=== PATIENT | female | born 1985 | race African-American/Black ===

== ENCOUNTER 2018-05-06 20:46 | Emergency (ER) | payer MEDICAID ==
[~2018-05-06] VITALS: Ht 160 cm; Wt 87.5 kg
[2018-05-06 22:01] LABS: BILIRUBIN,URINE SMALL (NEG); CLARITY,URINE CLEAR; COLOR,URINE YELLOW; NITRITE,URINE NEGATIVE (NEG); PH,URINE 5.5; PROTEIN,URINE NEGATIVE (NEG-TRACE)
[2018-05-06 22:08] LABS: BACTERIA,URINE 0 /HPF (0-FEW); RBC,URINE 0 /HPF (0-2); SQUAMOUS EPITHELIAL CELL,UR MOD /LPF; WBC,URINE OCC /HPF (0-4)
[2018-05-06 22:14] LABS: ALBUMIN 3.6 g/dL (3.4-5.0); DIRECT BILIRUBIN 0.1 mg/dL (0.0-0.2); TOTAL BILIRUBIN 0.3 mg/dL (0.2-1.0); TOTAL PROTEIN 7.7 g/dL (6.4-8.2)
[2018-05-06] MEDS: ACETAMINOPHEN 500 MG TABLET PO ONE (22:46)
[2018-05-06] MEDS: AZITHROMYCIN 250 MG TABLET. PO ONE (22:46)
[2018-05-06] MEDS: metroNIDAZOLE 500 MG TABLET PO ONE (22:46)
[2018-05-06] MEDS: ONDANSETRON ODT 4 MG TAB.RAPDIS. PO ONE (22:46)
[2018-05-06] MEDS: cefTRIAXone IM 250 MG VIAL IM ONE (22:47)
--- NOTE | 2018-05-06 22:53 | RAD ---
Early OB ultrasound History: Pelvic pain. . No correlative beta hCG levels Comparison: None. Technique: Transabdominal imaging was performed for initial evaluation of the pelvis. Endovaginal imaging was performed to evaluate optimally the lower uterine segment and to increase sensitivity for detection of intrauterine . Findings: Transabdominal imaging: Uterus measures 5.3 cm in length. No intrauterine is identified. Right ovary measures 3.8 x 3.4 x 4.7 cm and demonstrates 3.9 cm corpus luteum cyst. Left ovary is not visualized. Right ovary demonstrates normal vascular flow upon Doppler interrogation and is without evidence of torsion. No adnexal masses are seen.. Endovaginal imaging: Uterus measures 10.3 cm in length. Single intrauterine is identified with gestational sac and yolk sac seen. Gestational sac appears regular. No subchorionic hemorrhage is identified. Embryo is not identified at this time. Mean sac diameter is 8.5 mm corresponding to 5 weeks 5 days. Estimated date of delivery based on this measurement is January 01, 2019. Left ovary measures 2.0 x 3.2 x 1.9 cm and is unremarkable. Left ovary demonstrates normal vascular flow upon Doppler interrogation and is without evidence of torsion. Right ovary is not seen. Impression: 1. Single intrauterine . Gestational sac and yolk sac are seen. Embryonic pole is not identified this time, which can be normal this early in . Mean sac diameter of 8.5 mm corresponds to 5 weeks 5 days. Estimated date of delivery based on this measurement is January 01, 2019. Electronically signed by: Paulo Hawkins MD (05/06/2018 10:49 PM) [facility]
--- NOTE | 2018-05-06 23:04 | PHYS DOC ---
Past Medical History Past Medical History: Other Additional Past Medical Histor: HEP C Past Surgical History: Cholecystectomy Alcohol Use: Occasionally Drug Use: None Adult General Chief Complaint Chief Complaint: VAGINAL BLEEDING HPI HPI Patient is a 32 year old female who presents with multiple complaints. The patient states that she took a test was +2 weeks ago. She states that the father of the child is no longer in the picture because he informed her that he was positive for a sexually transmitted disease. She states that she does not know which sexually transmitted disease he was infected with. She also states that she has hepatitis C and is worried about her liver enzymes. The patient has not followed up with the health department or an tanker serviceman. She denies vaginal bleeding. Review of Systems Review of Systems Constitutional: Denies fever or chills [] Respiratory: Denies cough or shortness of breath [] Cardiovascular: No additional information not addressed in HPI [] GI: See history of present illness : Denies dysuria or hematuria [] Musculoskeletal: Denies back pain or joint pain [] Integument: Denies rash or skin lesions [] Neurologic: Denies headache, focal weakness or sensory changes [] Endocrine: Denies polyuria or polydipsia [] All other systems were reviewed and found to be within normal limits, except as documented in this note. Current Medications Current Medications Current Medications Medications (Trade) Dose Ordered Sig/Linda Start Time Stop Time Status Last Admin Dose Admin Acetaminophen (Tylenol) 1,000 mg 1X ONCE 05/06/18 22:45 05/06/18 22:46 DC 05/06/18 22:46 1,000 MG Azithromycin (Zithromax) 1,000 mg 1X ONCE 05/06/18 22:45 05/06/18 22:46 DC 05/06/18 22:46 1,000 MG Ceftriaxone Sodium (Rocephin Im) 250 mg 1X ONCE 05/06/18 22:45 05/06/18 22:46 DC 05/06/18 22:47 250 MG Metronidazole (Flagyl) 2,000 mg 1X ONCE 05/06/18 22:45 05/06/18 22:46 DC 05/06/18 22:46 2,000 MG Ondansetron HCl (Zofran Odt) 4 mg 1X ONCE 05/06/18 22:45 05/06/18 22:46 DC 05/06/18 22:46 4 MG Allergies Allergies Allergies Coded Allergies Type Severity Reaction Last Updated Verified No Known Drug Allergies 05/06/18 No Physical Exam Physical Exam Constitutional: Well developed, well nourished, no acute distress, non-toxic appearance. [] Cardiovascular:Heart rate regular rhythm, no murmur [] Lungs & Thorax: Bilateral breath sounds clear to auscultation [] Abdomen: Bowel sounds normal, soft, no tenderness, no masses, no pulsatile masses. [] Skin: Warm, dry, no erythema, no rash. [] Back: No tenderness, no CVA tenderness. [] Extremities: No tenderness, no cyanosis, no clubbing, ROM intact, no edema. [] Neurologic: Alert and oriented X 3, normal motor function, normal sensory function, no focal deficits noted. [] Psychologic: Affect normal, judgement normal, mood normal. [] Current Patient Data Vital Signs Vital Signs Date Time Temp Pulse Resp B/P (MAP) Pulse Ox O2 Delivery O2 Flow Rate FiO2 05/06/18 23:09 79 18 140/70 (93) 99 05/06/18 21:12 98.5 Room Air 98.5 Lab Values Laboratory Tests Test 05/06/18 20:48 05/06/18 21:51 Urine Collection Type Unknown Urine Color Yellow Urine Clarity Clear Urine pH 5.5 Urine Specific [place] >=1.030 Urine Protein Negative mg/dL (NEG-TRACE) Urine Glucose (UA) 100 mg/dL (NEG) Urine Ketones (Stick) Trace mg/dL (NEG) Urine Blood Negative (NEG) Urine Nitrite Negative (NEG) Urine Bilirubin Small (NEG) Urine Urobilinogen Dipstick 1.0 mg/dL (0.2 mg/dL) Urine Leukocyte Esterase Negative (NEG) Urine RBC 0 /HPF (0-2) Urine WBC Occ /HPF (0-4) Urine Squamous Epithelial Cells Mod /LPF Urine Bacteria 0 /HPF (0-FEW) Urine Mucus Mod /LPF Total Bilirubin 0.3 mg/dL (0.2-1.0) Direct Bilirubin 0.1 mg/dL (0.0-0.2) Aspartate Amino Transferase (AST) 27 U/L (15-37) Alanine Aminotransferase (ALT) 50 U/L (14-59) Alkaline Phosphatase 74 U/L (46-116) Total Protein 7.7 g/dL (6.4-8.2) Albumin 3.6 g/dL (3.4-5.0) Microbiology 05/06/18 Wet Prep - Final, Complete EKG EKG [] Radiology/Procedures Radiology/Procedures []PATIENT: DEON AGUILARACCOUNT: [id number]#: [id number] : 1985 LOCATION: ER AGE: 32 SEX: F EXAM STATUS: REG ER ORD. PHYSICIAN: ADIA SMITH APRN REASON: pelvic pain PROCEDURE: OB < 14 WKS Early OB ultrasound History: Pelvic pain. . No correlative beta hCG levels Comparison: None. Technique: Transabdominal imaging was performed for initial evaluation of the pelvis. Endovaginal imaging was performed to evaluate optimally the lower uterine segment and to increase sensitivity for detection of intrauterine . Findings: Transabdominal imaging: Uterus measures 5.3 cm in length. No intrauterine is identified. Right ovary measures 3.8 x 3.4 x 4.7 cm and demonstrates 3.9 cm corpus luteum cyst. Left ovary is not visualized. Right ovary demonstrates normal vascular flow upon Doppler interrogation and is without evidence of torsion. No adnexal masses are seen.. Endovaginal imaging: Uterus measures 10.3 cm in length. Single intrauterine is identified with gestational sac and yolk sac seen. Gestational sac appears regular. No subchorionic hemorrhage is identified. Embryo is not identified at this time. Mean sac diameter is 8.5 mm corresponding to 5 weeks 5 days. Estimated date of delivery based on this measurement is January 01, 2019. Left ovary measures 2.0 x 3.2 x 1.9 cm and is unremarkable. Left ovary demonstrates normal vascular flow upon Doppler interrogation and is without evidence of torsion. Right ovary is not seen. Impression: 1. Single intrauterine . Gestational sac and yolk sac are seen. Embryonic pole is not identified this time, which can be normal this early in . Mean sac diameter of 8.5 mm corresponds to 5 weeks 5 days. Estimated date of delivery based on this measurement is January 01, 2019. Electronically signed by: Paulo Randall MD (05/06/2018 10:49 PM) [facility] DICTATED and SIGNED BY: PAULO RANDALL MD DATE: 05/06/18 6832 Impressions: Pelvic Exam: Mold Unloader present Abdomen: Nontender External Genitalia: Normal Skin Speculum: Normal vaginal mucosa, normal cervical discharge Bimanual: No adnexal masses or tenderness, No CMT Course & Med Decision Making Course & Med Decision Making Pertinent Labs and Imaging studies reviewed. (See chart for details) []The patient was given Rocephin, Zithromax and Flagyl in the emergency department. She was also given a dose of Tylenol for pain as well as Zofran prior to her medications. Dragon Disclaimer Dragon Disclaimer This electronic medical record was generated, in whole or in part, using a voice recognition dictation system. Departure Departure Impression: Primary Impression: Bacterial vaginosis Additional Impressions: Exposure to sexually transmitted disease (STD) Disposition: 01 HOME, SELF-CARE Condition: STABLE Referrals: NO PCP (PCP) ADENIKE JASMINE Jr, MD Patient Instructions: ABCs of , Bacterial Vaginosis, Sexually Transmitted Disease Additional Instructions: You were treated in the emergency department. Follow up with an tanker serviceman at an earliest available appointment for further management of your . Abstain for sexual activity for 2 weeks to allow time for the antibiotics to work. Problem Qualifiers ADIA SMITH APRN May 06, 2018 23:04
[2018-05-06 23:09] VITALS: BP 140/70
== END 2018-05-06 23:09 | disposition home or self-care (01) ==
LOC: ER 20:46
DX: O23.591 Infection of other part of genital tract in pregnancy, first trimester (principal); N76.0 Acute vaginitis; B96.89 Other specified bacterial agents as the cause of diseases classified elsewhere; Z20.2 Contact with and (suspected) exposure to infections with a predominantly sexual mode of transmission; Z3A.01 Less than 8 weeks gestation of pregnancy; Z90.49 Acquired absence of other specified parts of digestive tract
CPT/HCPCS: 76801; 80076; 81001; 81025; 96372; 99285; J0696; Q0111; Q0144; Q0162

== ENCOUNTER 2018-10-04 23:53 | Observation (INO) | payer SELFPAY ==
[~2018-10-04 23:53] MED LIST: IV RINGERS,LACTATED 1000ML 1,000 ML IV SCH
[2018-10-05] MEDS ORDERED: ACETAMINOPHEN 500 MG TABLET PO PRN
[2018-10-05 00:25] LABS: BILIRUBIN,URINE NEGATIVE (NEG); CLARITY,URINE CLEAR; COLOR,URINE YELLOW; NITRITE,URINE NEGATIVE (NEG); PROTEIN,URINE NEGATIVE (NEG-TRACE)
[2018-10-05 00:31] LABS: BACTERIA,URINE 0 /HPF (0-FEW); RBC,URINE 0 /HPF (0-2); SQUAMOUS EPITHELIAL CELL,UR MOD /LPF; WBC,URINE RARE /HPF (0-4)
[2018-10-05 00:40] LABS: BARBITURATES NEG (NEG); BENZODIAZEPINES NEG (NEG); CANNABINOIDS NEG (NEG); COCAINE NEG (NEG); METHADONE NEG (NEG); OPIATES NEG (NEG); PHENCYCLIDINE NEG (NEG)
[2018-10-05 00:43] LABS: AMPHETAMINE/METHAMPHETAMINE NEG (NEG)
[2018-12-28] MEDS ORDERED: NAPR-514 PO (15:23)
[2018-12-28] MEDS ORDERED: OXYC1TAB15 PO (15:23)
[2018-12-28] MEDS ORDERED: FERR325T14 PO (15:23)
== END 2018-10-05 01:17 | disposition home or self-care (01) ==
LOC: 3 SO LND 23:53
PROVIDERS: ADMIT Obstetrics & Gynecology; ATTEND Obstetrics & Gynecology
DX: O62.9 Abnormality of forces of labor, unspecified (principal); O22.42 Hemorrhoids in pregnancy, second trimester; O98.212 Gonorrhea complicating pregnancy, second trimester; O26.893 Other specified pregnancy related conditions, third trimester; M54.9 Dorsalgia, unspecified; R51 Headache; R19.7 Diarrhea, unspecified; Z3A.27 27 weeks gestation of pregnancy
CPT/HCPCS: 80307; 81001; 82962; G0379

== ENCOUNTER 2018-12-21 19:42 | Observation (INO) | payer MEDICAID ==
[~2018-12-21] VITALS: Ht 160 cm; Wt 90.3 kg
[2018-12-21] MEDS ORDERED: ACETAMINOPHEN 325 MG TABLET. PO PRN (19:45)
[2018-12-21] MEDS ORDERED: IV RINGERS,LACTATED 1000ML 1,000 ML IV PRN (19:45)
[2018-12-21 20:10] LABS: BILIRUBIN,URINE NEGATIVE (NEG); CLARITY,URINE CLOUDY; COLOR,URINE YELLOW; NITRITE,URINE NEGATIVE (NEG); PH,URINE 5.5; PROTEIN,URINE 30 mg/dL (NEG-TRACE)
[2018-12-21 20:16] LABS: AMPHETAMINE/METHAMPHETAMINE NEG (NEG); BARBITURATES NEG (NEG); BENZODIAZEPINES NEG (NEG); CANNABINOIDS NEG (NEG); COCAINE NEG (NEG); METHADONE NEG (NEG); OPIATES NEG (NEG); PHENCYCLIDINE NEG (NEG)
[2018-12-21 20:35] LABS: BACTERIA,URINE MODERATE /HPF (0-FEW); SQUAMOUS EPITHELIAL CELL,UR MANY /LPF; YEAST,URINE PRESENT /HPF
[2018-12-21] MEDS ORDERED: HYDROCORTISONE 2.5% RECTAL CREAM 30GM TUBE. RC PRN (21:00)
[2018-12-21] MEDS ORDERED: BENZOCAINE 20% TOPICAL AEROSOL SPRAY 57GM CAN. TP PRN (21:00)
[2018-12-21] MEDS ORDERED: hydrOXYzine 25 MG TABLET PO PRN (21:00)
[2018-12-21] MEDS ORDERED: ACETAMINOPHEN 500 MG TABLET PO PRN (21:00)
[2018-12-21] MEDS ORDERED: ZOLPIDEM 5 MG TABLET. PO PRN (21:00)
[2018-12-21 21:09] VITALS: BP 124/67
[2018-12-21 21:24] LABS: CREATININE,RANDOM URINE 150.8 mg/dL (Not Establ.)
[2018-12-21] MEDS: IV RINGERS,LACTATED 1000ML 1,000 ML IV SCH ×2 (21:24→23:00)
[2018-12-21 21:31] LABS: BASO % 0 % (0-3); EOS # 0.1 x10^3/uL (0.0-0.7); EOS % 1 % (0-3); HEMATOCRIT 35.1 % (36.0-47.0); HEMOGLOBIN 12.1 g/dL (12.0-15.5); LYMPH # 3.2 x10^3/uL (1.0-4.8); LYMPH % 38 % (24-48); MEAN CORPUSCULAR HEMOGLOBIN 31 pg (25-35); MEAN CORPUSCULAR HGB CONC 34 g/dL (31-37); MEAN CORPUSCULAR VOLUME 90 fL (79-100); MONO # 0.5 x10^3/uL (0.0-1.1); MONO % 7 % (0-9); NEUT # 4.6 x10^3uL (1.8-7.7); NEUT % 55 % (31-73); PLATELET COUNT 260 x10^3/uL (140-400); RED BLOOD COUNT 3.91 x10^6/uL (3.50-5.40); RED CELL DISTRIBUTION WIDTH 13.7 % (11.5-14.5); WHITE BLOOD COUNT 8.4 x10^3/uL (4.0-11.0)
[2018-12-21 21:41] LABS: CALCIUM 9.4 mg/dL (8.5-10.1); CREATININE 0.6 mg/dL (0.6-1.0); GFR 141.1; POTASSIUM 3.8 mmol/L (3.5-5.1)
[2018-12-21 21:47] LABS: ALBUMIN 2.7 g/dL (3.4-5.0); ALBUMIN/GLOBULIN RATIO 0.7 (1.0-1.7); TOTAL BILIRUBIN 0.4 mg/dL (0.2-1.0); TOTAL PROTEIN 6.7 g/dL (6.4-8.2)
[2018-12-21] MEDS ORDERED: FLUCONAZOLE 100 MG TABLET. PO ONE (22:30)
[2018-12-21] MEDS ORDERED: MICONAZOLE NITRATE 2% TOPICAL CREAM 28GM TUBE. TP SCH (22:30)
[2018-12-22] MEDS ORDERED: PRENATAL MULTIVITAMIN TABLET. PO SCH (09:00)
[2018-12-22] MEDS ORDERED: MICONAZOLE NITRATE 2% TOPICAL CREAM 28GM TUBE. TP SCH (09:00)
[2018-12-23 02:13] LABS: HEMOGLOBIN A1C 7.7 % (4.8-5.6)
[2018-12-28] MEDS ORDERED: OXYC1TAB15 PO (15:23)
[2018-12-28] MEDS ORDERED: FERR325T14 PO (15:23)
[2018-12-28] MEDS ORDERED: NAPR-514 PO (15:23)
== END 2018-12-21 23:55 | disposition home or self-care (01) ==
LOC: 3 SO LND 19:42
PROVIDERS: ADMIT Specialist; ATTEND Specialist
DX: O62.9 Abnormality of forces of labor, unspecified (principal); O22.43 Hemorrhoids in pregnancy, third trimester; Z3A.38 38 weeks gestation of pregnancy
CPT/HCPCS: 36415; 80053; 80307; 81001; 82570; 82962; 83036; 84156; 84443; 85025; 87086; 87653; G0378; G0379; J7120

== ENCOUNTER 2019-08-29 21:50 | Emergency (ER) | payer MEDICAID ==
[~2019-08-29] VITALS: Ht 160 cm; Wt 84.0 kg
[~2019-08-29 21:50] MED LIST changes: +FERR325T14 PO; -IV RINGERS,LACTATED 1000ML 1,000 ML IV SCH; +NAPR-514 PO; +OXYC1TAB15 PO
[2019-08-30 02:30] VITALS: BP 176/124
[2019-08-30] MEDS ORDERED: cloNIDine HCL 0.1 MG TABLET PO ONE (03:00)
[2019-08-30 03:15] LABS: BILIRUBIN,URINE NEGATIVE (NEG); CLARITY,URINE CLEAR; COLOR,URINE YELLOW; NITRITE,URINE NEGATIVE (NEG); PH,URINE 5.5; PROTEIN,URINE 100 mg/dL (NEG-TRACE)
[2019-08-30 03:19] LABS: SQUAMOUS EPITHELIAL CELL,UR MOD /LPF
[2019-08-30 03:21] LABS: BACTERIA,URINE FEW /HPF (0-FEW); RBC,URINE 0 /HPF (0-2); YEAST,URINE PRESENT /HPF
--- NOTE | 2019-08-30 03:29 | PHYS DOC ---
Past Medical History Past Medical History: Other Additional Past Medical Histor: HEP C Past Surgical History: Cholecystectomy Smoking Status: Current Every Day Smoker Alcohol Use: Occasionally Drug Use: None Adult General Chief Complaint Chief Complaint: HEMORRHOIDS HPI HPI Patient is a 33 year old G6, P6 female presents with urinary frequency urgency dysuria, vaginal itching and discharge the past 2 weeks. Patient and treating herself with a Monistat cream for possible yeast infection without improvement. Symptoms began after recent intercourse with Renzo. No abdominal pain, pelvic pain. No fever chills or sweats. No other acute symptoms or complaints. [] Review of Systems Review of Systems ROS as per HPI All other systems were reviewed and found to be within normal limits, except as documented in this note. Current Medications Current Medications Current Medications Medications (Trade) Dose Ordered Sig/Linda Start Time Stop Time Status Last Admin Dose Admin Clonidine HCl (Catapres) 0.3 mg 1X ONCE 08/30/19 03:00 08/30/19 03:26 DC Allergies Allergies Allergies Coded Allergies Type Severity Reaction Last Updated Verified No Known Drug Allergies 05/06/18 No Physical Exam Physical Exam Constitutional: Well developed, well nourished, no acute distress, non-toxic appearance. [] HENT: Normocephalic, atraumatic, bilateral external ears normal, oropharynx moist, no oral exudates, nose normal. [] Eyes: PERRLA, EOMI, conjunctiva normal, no discharge. [] Abdomen: Bowel sounds normal, soft, no tenderness. [] : External genitalia, normal, and, no lesions, white frothy discharge, cervix closed. Tenderness on exam.. [] Back: No tenderness. [] Neurologic: Alert and oriented X 3, normal motor function, normal sensory function, no focal deficits noted. [] Psychologic: Affect normal, judgement normal, mood normal. [] Current Patient Data Lab Values Laboratory Tests Test 08/30/19 03:07 08/30/19 03:09 Urine Collection Type Unknown Urine Color Yellow Urine Clarity Clear Urine pH 5.5 Urine Specific [place] >=1.030 Urine Protein 100 mg/dL (NEG-TRACE) Urine Glucose (UA) >=1000 mg/dL (NEG) Urine Ketones (Stick) Negative mg/dL (NEG) Urine Blood Negative (NEG) Urine Nitrite Negative (NEG) Urine Bilirubin Negative (NEG) Urine Urobilinogen Dipstick 1.0 mg/dL (0.2 mg/dL) Urine Leukocyte Esterase Negative (NEG) Urine RBC 0 /HPF (0-2) Urine WBC 5-10 /HPF (0-4) Urine Squamous Epithelial Cells Mod /LPF Urine Bacteria Few /HPF (0-FEW) Urine Yeast Present /HPF POC Urine HCG, Qualitative Hcg negative (Negative) Microbiology 08/30/19 Wet Prep - Final, Complete EKG EKG [] Radiology/Procedures Radiology/Procedures [] Course & Med Decision Making Course & Med Decision Making Pertinent Labs and Imaging studies reviewed. (See chart for details) Exam consistent with yeast vaginitis] Dragon Disclaimer Dragon Disclaimer This electronic medical record was generated, in whole or in part, using a voice recognition dictation system. Departure Departure Impression: Primary Impression: Yeast vaginitis Disposition: HOME, SELF-CARE Condition: STABLE Referrals: UNKNOWN PCP NAME (PCP) Scripts Fluconazole (DIFLUCAN) 150 Mg Tablet 1 TAB PO Q3DAYS, #2 TAB 1 Refill Prov: EMMIE KATZ DO 08/30/19 EMMIE KATZ DO Aug 30, 2019 03:29
[2019-08-30] MEDS ORDERED: FLUC150T PO (03:57)
[2019-08-31 19:09] LABS: GC PROBE Positive (Negative)
== END 2019-08-30 04:12 | disposition home or self-care (01) ==
LOC: ER 21:50
DX: B37.3 Candidiasis of vulva and vagina (principal); F17.200 Nicotine dependence, unspecified, uncomplicated; Z90.49 Acquired absence of other specified parts of digestive tract
CPT/HCPCS: 81001; 81025; 87086; 87491; 87591; 99283; Q0111

== ENCOUNTER 2019-09-02 14:52 | Emergency (ER) | payer MEDICAID ==
[~2019-09-02] VITALS: Ht 160 cm; Wt 84.0 kg
[~2019-09-02 14:52] MED LIST changes: +FLUC150T PO
[2019-09-02] MEDS ORDERED: AZITHROMYCIN 250 MG TABLET. PO ONE (15:00)
[2019-09-02] MEDS ORDERED: ONDANSETRON ODT 4 MG TAB.RAPDIS. PO ONE (15:00)
[2019-09-02] MEDS ORDERED: cefTRIAXone IM 250 MG VIAL IM ONE (15:00)
--- NOTE | 2019-09-02 15:03 | PHYS DOC ---
Past Medical History Past Medical History: Other Additional Past Medical Histor: HEP C Past Surgical History: Cholecystectomy Smoking Status: Current Every Day Smoker Alcohol Use: Occasionally Drug Use: None Adult General Chief Complaint Chief Complaint: OTHER COMPLAINTS HPI HPI Patient is a 33 year old female who presents with came back positive for Chlamydia and gonorrhea on August 30, 2019. Patient was not treated with antibiotics prophylactically. Patient is here today to be treated Review of Systems Review of Systems : + gonorrhea and chlamydia. Denies dysuria or hematuria [] All other systems were reviewed and found to be within normal limits, except as documented in this note. Allergies Allergies Allergies Coded Allergies Type Severity Reaction Last Updated Verified No Known Drug Allergies 05/06/18 No Physical Exam Physical Exam Constitutional: Well developed, well nourished, no acute distress, non-toxic appearance. [] HENT: Normocephalic, atraumatic, bilateral external ears normal, oropharynx moist, no oral exudates, nose normal. [] Eyes: PERRLA, EOMI, conjunctiva normal, no discharge. [] Neck: Normal range of motion, no tenderness, supple, no stridor. [] Cardiovascular:Heart rate regular rhythm, no murmur [] Lungs & Thorax: Bilateral breath sounds clear to auscultation [] Abdomen: Bowel sounds normal, soft, no tenderness, no masses, no pulsatile masses. [] Skin: Warm, dry, no erythema, no rash. [] Back: No tenderness, no CVA tenderness. [] Extremities: No tenderness, no cyanosis, no clubbing, ROM intact, no edema. [] Neurologic: Alert and oriented X 3, normal motor function, normal sensory function, no focal deficits noted. [] Psychologic: Affect normal, judgement normal, mood normal. Normal Physical exam[] EKG EKG [] Radiology/Procedures Radiology/Procedures [] Course & Med Decision Making Course & Med Decision Making Pertinent Labs and Imaging studies reviewed. (See chart for details) Patient denies any worsening symptoms. Patient denies abdominal pain, nausea, vomiting, fever, back pain, chest pain, shortness of air, dysuria, headache, dizziness, visual changes, weakness, numbness or tingling. Abdomen soft and nontender. Alert and oriented. Ambulatory with a steady gait. Skin pink warm and dry. Patient is treated today in the ED with Rocephin and azithromycin. Patient was called by Redd DECKER. [] Lopez Disclaimer Dragon Disclaimer This electronic medical record was generated, in whole or in part, using a voice recognition dictation system. Departure Departure Impression: Primary Impression: Sexually transmitted disease Disposition: HOME, SELF-CARE Condition: STABLE Referrals: UNKNOWN PCP NAME (PCP) Patient Instructions: Sexually Transmitted Disease Additional Instructions: Have all partners treated for sexually transmitted diseases. WICHO ADKINS APRN Sep 02, 2019 15:03
[2019-09-02 15:10] VITALS: BP 144/92
== END 2019-09-02 15:30 | disposition home or self-care (01) ==
LOC: ER 14:52
DX: A64 Unspecified sexually transmitted disease (principal); Z90.49 Acquired absence of other specified parts of digestive tract; F17.200 Nicotine dependence, unspecified, uncomplicated
CPT/HCPCS: 96372; 99283; J0696; Q0144; Q0162

== ENCOUNTER 2020-09-15 19:12 | Emergency (ER) | payer MEDICAID ==
[~2020-09-15] VITALS: Ht 160 cm; Wt 86.4 kg
[2020-09-15] MEDS ORDERED: ALPRAZolam 0.5 MG TABLET PO ONE (20:15)
--- NOTE | 2020-09-15 22:11 | RAD ---
Exam: Abdomen 2 views INDICATION: Constipated TECHNIQUE: Upright and supine views of the abdomen Comparisons: None FINDINGS: Air and stool noted throughout the colon to level the rectum in a nonobstructive bowel gas pattern. L arge amount stool in the colon. No suspicious masses or calcifications. No free air No suspicious osseous lesions or acute fractures IMPRESSION: Large amount stool noted in the colon. Correlate for constipation. Electronically signed by: Radha Martino MD (09/15/2020 10:08 PM) [facility]
[2020-09-15 22:51] VITALS: BP 172/118
--- NOTE | 2020-09-15 23:23 | ED.ADGEN ---
Past Medical History Past Medical History: Other Additional Past Medical Histor: HEP C Past Surgical History: Cholecystectomy, Tubal ligation Smoking Status: Current Every Day Smoker Alcohol Use: Occasionally Drug Use: None General Adult EDM: Chief Complaint: CONTISPATION HPI: HPI: Patient is a 34 year old female who presents to the emergency department with complaints of rectal pain and constipation. Patient reports that she has not had a bowel movement since September 052020. She states that she had hemorrhoids removed on that day and that she has not been able to poop since she had the hemorrhoids removed. She states that her abdomen feels bloated and cr amps like she needs to poop but she is afraid to poop. Patient reports she has been taking hydrocodone and daily stool softeners for relief of pain after having the hemorrhoidectomy. Patient reports that she has had decreased food intake because she is afraid to eat solids. She reports taking multiple laxatives, drinking prune juice, mag citrate, and MiraLAX with no bowel moveme nt. Patient denies any fever, dysuria, hematuria, difficulty voiding, increased urinary frequency, nausea, vomiting, diarrhea, body aches, or fatigue. She currently rates her rectal pain a 10 out of 10 on the pain scale, she states that her abdominal pain is intermittent and currently denies any abdominal pain. Review of Systems: Review of Systems: Complete ROS is negative unless otherwise noted in HPI. Current Medications: Current Medications Medications (Trade) Dose Ordered Sig/[facility] Start Time Stop Time Status Last Admin Dose Admin Alprazolam (Xanax) 0.5 mg 1X ONCE 09/15/20 20:15 09/15/20 20:16 DC 09/15/20 20:15 0.5 MG Allergies: Allergies: Allergies Coded Allergies Type Severity Reaction Last Updated Verified No Known Drug Allergies 05/06/18 No Physical Exam: PE: See Above Constitutional: Well developed, well nourished, no acute distress, non-toxic appearance. [] HENT: Normocephalic, atraumatic, bilateral external ears normal, nose normal. [] Eyes: PERRLA, EOMI, conjunctiva normal, no discharge. [] Neck: Normal range of motion, no stridor. [] Cardiovascular:Heart rate regular rhythm Lungs & Thorax: Respirations even and unlabored, no retractions, no respiratory distress Abdomen: soft, no tenderness Rectal Exam: Normal tone, No mass, Positive control, healing surgical site from previous hemorrhoidectomy Stool: Firm, hard stool present in the rectal vault Guaiac: Deferred Skin: Warm, dry, no erythema, no rash. [] Extremities: No cyanosis, ROM intact, no edema. [] Neurologic: Alert and oriented X 3, no focal deficits noted. [] Psychologic: Affect normal, judgement normal, mood normal. [] Current Patient Data: Vital Signs: Vital Signs Date Time Temp Pulse Resp B/P (MAP) Pulse Ox O2 Delivery O2 Flow Rate FiO2 09/15/20 19:19 97.2 115 18 162/97 (118) 99 Room Air 97.2 EKG: EKG: [] Heart Score: Risk Factors: Risk Factors: DM, Current or recent (<one month) smoker, HTN, HLP, family history of CAD, obesity. Risk Scores: Score 0 - 3: 2.5% MACE over next 6 weeks - Discharge Home Score 4 - 6: 20.3% MACE over next 6 weeks - Admit for Clinical Observation Score 7 - 10: 72.7% MACE over next 6 weeks - Early Invasive Strategies Radiology/Procedures: Radiology/Procedures: PROCEDURE: ABDOMEN SUPINE & UPRIGHT Exam: Abdomen 2 views INDICATION: Constipated TECHNIQUE: Upright and supine views of the abdomen Comparisons: None FINDINGS: Air and stool noted throughout the colon to level the rectum in a nonobstructive bowel gas pattern. Large amount stool in the colon. No suspicious masses or calcifications. No free air No suspicious osseous lesions or acute fractures IMPRESSION: Large amount stool noted in the colon. Correlate for constipation.[] Course & Med Decision Making: Course & Med Decision Making Pertinent Labs and Imaging studies reviewed. (See chart for details) 34-year-old female presented emergency department with complaints of constipation, rectal pain, and intermittent abdominal and back pain. Rectal exam revealed a fecal impaction in the rectal vault. Patient did not tolerate manual disimpaction. Patient was given a milk of molasses enema by nursing staff and was able to have a large bowel movement. Supine and upright x-ray of the abdomen revealed a large amount of stool in the colon, there was no suspicious masses or calcifications, no free air. Patient's vital signs were stable throughout her emergency department visit. She reported feeling better after passing stool. I encouraged the patient to make sure she drinks at least 8 glasses of water daily, encouraged her to take 1 capful of MiraLAX in 8 ounces of water twice daily for the next 3 days then once daily to maintain soft stools. I encouraged her to follow-up with her primary care doctor next week, return to the ER if symptoms worsen or fever develops. Patient verbalized an understanding of home care, medications, follow-up, and return to ED instructions and was in agreement with the plan of care. [] Dragon Disclaimer: Dragon Disclaimer: This electronic medical record was generated, in whole or in part, using a voice recognition dictation system. Departure Departure Impression: Primary Impression: Constipation Disposition: 01 DC HOME SELF CARE/HOMELESS Condition: STABLE Referrals: UNKNOWN PCP NAME (PCP) Patient Instructions: Constipation, Adult, [id number] Additional Instructions: Take 1 capful of MiraLAX in 8 ounces of juice or water twice a day for 3 days then take 1 capful daily. Increase fluid intake. Follow-up with your primary care doctor in the next 1 to 2 days, return to the ER if symptoms worsen. Problem Qualifiers Primary Impression: Constipation Constipation type: unspecified constipation type Qualified Codes: K59.00 - Constipation, unspecified AMOL MALDONADO [employer]GER [employer] Sep 15, 2020 23:22
== END 2020-09-16 00:09 | disposition home or self-care (01) ==
LOC: ER 19:12
DX: K59.00 Constipation, unspecified (principal); F17.200 Nicotine dependence, unspecified, uncomplicated; Z90.49 Acquired absence of other specified parts of digestive tract; Z98.51 Tubal ligation status
CPT/HCPCS: 74021; 99285-25

== ENCOUNTER 2021-03-23 00:14 | Emergency (ER) | payer MEDICAID ==
[~2021-03-23] VITALS: Ht 160 cm; Wt 85.0 kg
[2021-03-23 01:09] VITALS: BP 167/100
--- NOTE | 2021-03-23 01:14 | PHYS DOC ---
Past Medical History Past Medical History: Diabetes-Type II, Hypertension, Other Additional Past Medical Histor: HEP C Past Surgical History: Cholecystectomy, Tubal ligation Smoking Status: Current Every Day Smoker Alcohol Use: Occasionally Drug Use: None General Adult EDM: Chief Complaint: COUGH HPI: HPI: Patient is a 35-year-old female presents with several day history of subjective fever/chills, body aches, cough, headache, and loss of taste and smell. Reports exposure to cousin that recently tested positive for COVID-19. Patient reports she has DM and HTN and smokes daily. Denies COVID vaccination. Denies trauma. Denies . Reports surgical history of tubal ligation. Review of Systems: Review of Systems: Constitutional: Reports subjective fever and chills and body aches Eyes: Denies redness or eye pain HENT: Denies nasal congestion or sore throat Respiratory: Reports cough and shortness of breath Cardiovascular: Denies chest pain or palpitations GI: Denies abdominal pain, nausea, or vomiting : Denies dysuria or hematuria Musculoskeletal: Denies back pain or joint pain Integument: Denies rash or skin lesions Neurologic: Reports headache; denies focal weakness or sensory changes Complete systems were reviewed and found to be within normal limits, except as documented in this note. Heart Score: C/O Chest Pain: N/A Allergies: Allergies: Allergies Coded Allergies Type Severity Reaction Last Updated Verified No Known Drug Allergies 05/06/18 No Physical Exam: PE: Constitutional: Well developed, well nourished, no acute distress, ill but non- toxic appearance HENT: Normocephalic, atraumatic, bilateral TMs clear, nares clear, pharynx without exudate or erythema Eyes: Large artificial eyelashes noted, conjunctiva normal, no discharge Neck: Normal range of motion, supple, no meningeal signs Lungs & Thorax: No respiratory distress, equal chest rise and fall Abdomen: Soft, no tenderness Skin: Warm, dry, no erythema, no rash Extremities: No tenderness, ROM intact, no edema Neurologic: Alert and oriented X 3, no focal deficits noted Psychologic: Affect normal, judgment normal EKG: EKG: [] Radiology/Procedures: Radiology/Procedures: PROCEDURE: CHEST AP ONLY EXAM: XR CHEST 1V 03/23/2021 1:14 AM CLINICAL INDICATION: Cough, URI, possible Covid COMPARISON: None TECHNIQUE: AP upright view of the chest FINDINGS: The heart and mediastinum are normal. Lungs are well-expanded and clear. No consolidation, pleural effusion, or pneumothorax. Pulmonary vascularity is normal. The thoracic skeleton is intact. IMPRESSION: Normal chest radiograph. Electronically signed by: Olivia Dao MD (03/23/2021 2:57 AM) [id number] Course & Med Decision Making: Course & Med Decision Making Pertinent Labs and Imaging studies reviewed. (See chart for details) Patient presents with HPI and physical exam concerning for viral syndrome. Symptomatic treatment provided. Rapid influenza negative. Covid testing pending. Chest x-ray without acute process.. Sats stable. Patient stable for discharge with outpatient follow-up with PCP. Discussed findings and plan with patient, who acknowledges understanding and agreement. COVID-19 CRITERIA: The patient was evaluated during the global COVID-19 pandemic, and that diagnosis was suspected/considered upon their initial presentation. Their evaluation, treatment and testing was consistent with current guidelines for patients who present with complaints or symptoms that may be related to COVID-19. Lopez Disclaimer: Lopez Disclaimer: This electronic medical record was generated, in whole or in part, using a voice recognition dictation system. Departure Departure Impression: Primary Impression: Viral syndrome Additional Impression: Suspected 2019 novel coronavirus infection Disposition: HOME / SELF CARE / HOMELESS Condition: STABLE Referrals: UNKNOWN PCP NAME (PCP) Patient Instructions: Viral Syndrome Additional Instructions: You have been tested for or diagnosed with COVID-19. It is an infection caused by a new type of coronavirus. COVID-19 will cause cold-like or mild flu symptoms in most. It can cause more severe symptoms like problems breathing in some. There is no treatment for COVID-19. The body will clear the infection over time. Self-care will help to ease discomfort. Steps to Take: Self-Care Rest as needed. Healthy habits may help you feel better. Steps include: Choose healthy foods including fruits and vegetables. Drink water throughout the day. Get plenty of sleep each night. If you smoke, try to quit. It may ease breathing. Avoid alcohol. Keep Others Healthy The virus can spread to others. Droplets are released every time you sneeze or cough. The droplets can get into the mouth, nose, or eyes of people near you and lead to infection. To lower the chances of spreading COVID-19 to others: Stay at home until your doctor has said it is safe to leave. If you tested positive this will mean staying isolated until both of the following are true: At least 7 days have passed since the start of illness. You are free of fever for at least 72 hours without the use of medicine. During this time: - Avoid public areas, events, or transportation. Do not return to work or school until your doctor has said it is safe to do so. - Call ahead if you need to go to a medical center. Let them know you may have COVID-19. It will help them guide you where to go. They may also ask you to wear a facemask when you come to the office. - If you call for emergency medical services, let them know you may have COVID- 19. While at home: - Try to avoid close contact with others. Stay about 6 feet away. - If possible, spend most of your time in a separate room from others. - Use a face mask if you will be in close contact with others such as sharing a room or vehicle. - Have someone wipe down common surfaces in the home. Use household warrant server every day on areas like doorknobs, counters, or sinks. - Cough or sneeze into a tissue. Throw the tissue away right after use. If a tissue is not available, cough or sneeze into your elbow. - Wash your hands often. Wash them after sneezing or coughing. Use soap and water and wash for at least 20 seconds. Alcohol based hand block cleaner can be used if soap and water is not available. - Do not prepare food for others. Avoid sharing personal items like forks, spoons, or toothbrushes. - Avoid close contact with pets while you are sick. There is no evidence of the virus passing to pets. This is a safety step until more is known about this virus. Isolation can be frustrating. Social interaction can help. Keep in touch with friends and family through phone and tech options. You can still interact with others in your home, just keep a safe distance of about 6 feet. Follow-up: Your doctors office will check in with you to see if there are any changes in your health. You may be asked to keep track of symptoms to share with them. They will also let you know when you are clear to be in public again. Problems to Look Out For: Contact your doctor if your recovery is not going as you expect. Get emergency care if you have problems such as: - Trouble breathing - Nonstop chest pain or pressure - Changes in awareness, confusion, or problems waking - Lips or face have bluish color - Worsening of symptoms If you think you have an emergency, call for emergency medical services right away. As taken from [facility] COVID-19 Assessment: COVID-19 Patient Risks: Age 65 or older: No Sign of co-morbidity: Yes Exp to person + for COVID: Yes Exp to PUI: No Travel from affected area: No Lower respiratory symptoms: Yes Fever: Yes Other: Yes PPE Use: Full PPE with N95 mask or PAPR: Yes BERKLEY MIRANDA DO Mar 23, 2021 01:14
[2021-03-23] MEDS ORDERED: ACETAMINOPHEN 500 MG TABLET PO ONE (01:15)
[2021-03-23] MEDS ORDERED: DEXAMETHASONE 4 MG TABLET PO ONE (01:15)
[2021-03-23 02:09] LABS: INFLUENZA A PATIENT NEGATIVE (NEGATIVE); INFLUENZA B PATIENT NEGATIVE (NEGATIVE)
--- NOTE | 2021-03-23 02:59 | RAD ---
EXAM: XR CHEST 1V 03/23/2021 1:14 AM CLINICAL INDICATION: Cough, URI, possible Covid COMPARISON: None TECHNIQUE: AP upright view of the chest FINDINGS: The heart and mediastinum are normal. Lungs are well-expanded and clear. No consolidatio n, pleural effusion, or pneumothorax. Pulmonary vascularity is normal. The thoracic skeleton is int act. IMPRESSION: Normal chest radiograph. Electronically signed by: Olivia Dao MD (03/23/2021 2:57 AM) [id number]
== END 2021-03-23 02:45 | disposition home or self-care (01) ==
LOC: ER 00:14
DX: U07.1 COVID-19 (principal); B34.9 Viral infection, unspecified; E11.9 Type 2 diabetes mellitus without complications; I10 Essential (primary) hypertension; F17.200 Nicotine dependence, unspecified, uncomplicated
CPT/HCPCS: 71045; 82962; 87804; 99284; U0003; U0005